=== PATIENT | male | born 1960 | race Caucasian/White ===

== ENCOUNTER 2021-02-11 08:02 | Observation (INO) ==
[2021-02-11] MEDS ORDERED: Naloxone 0.4 MG/ML INJ IVP PRN (09:12)
[2021-02-11 10:53] LABS: Hematocrit 52.5 % (37.5-50.1); Mean Corpuscular HGB Conc 34.3 g/dL (31.6-35.5); Mean Corpuscular Hemoglobin 31.4 pg (28.0-33.3); Mean Corpuscular Volume 91.6 fL (83.0-100.0); Mean Platelet Volume 9.9 fL (9.4-12.4); Platelet Count 223 K/mcL (140-400); Red Blood Count 5.73 M/mcL (4.19-5.50); Red Cell Distribution Width 13.3 % (11.5-14.5); White Blood Count 6.7 K/mcL (4.3-11.1)
[2021-02-11 11:07] LABS: BUN/Creatinine Ratio 20 (6-26); Blood Urea Nitrogen 22 mg/dL (6-20); Carbon Dioxide 27 mEq/L (23-29); Chloride 102 mEq/L (98-107); Glucose 155 mg/dL (70-105); Magnesium 2.1 mg/dL (1.6-2.6); Osmolality,Calculated 294 (280-300); Potassium 4.2 mEq/L (3.5-5.1); Sodium 139 mEq/L (136-145); eGFR For African Americans > 60 (> 60); eGFR For Non-African Americans > 60 (> 60)
[2021-02-11] MEDS: allopurinoL 100 MG TABLET PO SCH (20:22)
[2021-02-11] MEDS: Apixaban 5 MG TABLET PO SCH (20:22)
[2021-02-12] MEDS: *HR* Metformin 500 MG TABLET PO SCH ×2 (08:05→16:55)
[2021-02-12] MEDS: Cholecalciferol (D-3) 1,000 UNIT (25MCG) TABLET PO SCH (08:05)
[2021-02-12] MEDS: Cyanocobalamin (B-12) 1,000 MCG TABLET PO SCH (08:05)
[2021-02-12] MEDS: Finasteride 5 MG TABLET PO SCH (08:05)
[2021-02-12] MEDS: Furosemide 40 MG TABLET PO SCH (08:05)
[2021-02-12] MEDS: Apixaban 5 MG TABLET PO SCH ×2 (08:06→20:15)
[2021-02-12] MEDS: allopurinoL 100 MG TABLET PO SCH ×2 (08:06→20:15)
[2021-02-12] MEDS: amLODIPine 5 MG TABLET PO SCH (08:06)
[2021-02-12] MEDS: *HR* GlipiZIDE XL (24 HR) 2.5 MG TABLET PO SCH (08:16)
[2021-02-12] MEDS ORDERED: D5% in Water 1,000 ML IVC PRN (08:41)
[2021-02-12] MEDS ORDERED: Dextrose Gel 15 GM/37.5 ML TUBE PO PRN ×2 (08:41)
[2021-02-12] MEDS ORDERED: *HR* Dextrose 50 % in Water (Syg) 50 ML SYRINGE IVP PRN (08:41)
[2021-02-12] MEDS ORDERED: (Empagliflozin [Jardiance] 25 MG Tablet) PO SCH (09:00)
[2021-02-12] MEDS ORDERED: Ketoconazole Shampoo 120 ML BOTTLE TP SCH (09:00)
[2021-02-12] MEDS: Acetaminophen 325 MG TABLET PO PRN ×2 (09:22→20:19)
[2021-02-13] MEDS: Cholecalciferol (D-3) 1,000 UNIT (25MCG) TABLET PO SCH (07:39)
[2021-02-13] MEDS: *HR* Metformin 500 MG TABLET PO SCH ×2 (07:40→16:30)
[2021-02-13] MEDS: Finasteride 5 MG TABLET PO SCH (07:40)
[2021-02-13] MEDS: Cyanocobalamin (B-12) 1,000 MCG TABLET PO SCH (07:40)
[2021-02-13] MEDS: amLODIPine 5 MG TABLET PO SCH (07:40)
[2021-02-13] MEDS: *HR* GlipiZIDE XL (24 HR) 2.5 MG TABLET PO SCH (07:40)
[2021-02-13] MEDS: Furosemide 40 MG TABLET PO SCH (07:40)
[2021-02-13] MEDS: Apixaban 5 MG TABLET PO SCH (07:40)
[2021-02-13] MEDS: allopurinoL 100 MG TABLET PO SCH (07:41)
[2021-02-13 18:48] VITALS: BP 109/74; PULSE 84; TEMP 97.9; O2SAT 96
[2021-02-17] MEDS ORDERED: Patient Taking Own Medication 1 EACH SQ SCH (09:00)
== END 2021-02-13 22:40 | disposition home or self-care (01) ==
LOC: 2ANU
PROVIDERS: ADMIT Internal Medicine Clinical Cardiac Electrophysiology; ATTEND Internal Medicine Clinical Cardiac Electrophysiology